=== PATIENT | female | born 1935 | race Caucasian/White ===

== ENCOUNTER → 2018-02-02 11:54 | Outpatient (CLI) | payer MEDICARE, OTHER, SELFPAY ==
--- NOTE | 2018-02-02 | DI.ECHO.S_ITS ---
[facility] +---------+ : : [address] : : : : [id number] : : : : Phone: [phone]---------+ Echocardiogram Report + + :Name: BERNARDO TEJADA Study Date: 02/02/2018 Height: 61 in : :[facility] Weight: 126 lb : : Gender: Female BSA: 1.6 m2 : :: 1935 Age: 83 yrs BP: 142/70 mmHg: :Reason For Study: Dyspnea on exertion : :Ordering Physician: Thierry : :Trav Performed By: Carlie Black : :Referring: Dr. Knutson Roof : + + Interpretation Summary Mild asymmetric left ventricular hypertrophy with ejection fraction 65-70%. Mildly dilated left atrium. Mild aortic valve sclerosis. No valvular regurgitation. Procedure: A two-dimensional transthoracic echocardiogram with color flow and Doppler was performed. The study quality was technically adequate. There is no prior echocardiogram noted for this patient. The patient was in normal sinus rhythm during the exam. The heart rate ranged between 49-63 bpm during the study. Left Ventricle: There is mild asymmetric left ventricular hypertrophy. The left ventricular cavity is small. There is no ventricular septal defect visualized. The ejection fraction is estimated to be 65-70%. There are no focal wall motion abnormalities. Diastolic parameters suggest a pseudonormalization pattern, consistent with probable elevated filling pressures. Right Ventricle: The right ventricle is normal in size and function. Atria: The left atrium is mildly dilated. Right atrial size is normal. There is no Doppler evidence for an interatrial shunt. Mitral Valve: There is borderline prolapse of the anterior mitral valve leaflet. There is trace mitral regurgitation. Aortic Valve: There is mild aortic valve sclerosis. The aortic valve is trileaflet. The aortic valve opens well. No aortic regurgitation is present. Tricuspid Valve: The tricuspid valve leaflets are thin and pliable. There is trace tricuspid regurgitation. The right ventricular systolic pressure is estimated to be at least 25 mmHg based on an estimated right atrial pressure of 3 mm Hg. Pulmonic Valve: The pulmonic valve is normal in structure and function. There is a trace or physiologic amount of pulmonic regurgitation. Great Vessels: The aortic root is normal size. The ascending aorta is normal in size. The aortic arch is normal in size. The IVC is of normal diameter and collapses greater than 50% with a sniff. This suggests a low right atrial pressure of 3 mm Hg. Pericardium/ Pleura There is no pericardial effusion. MMode/2D Measurements & Calculations LVIDd: 4.3 cm LVOT diam: 1.8 cm LVIDs: 2.6 cm Ao root diam: 3.1 cm FS: 39.8 % Aortic Jxn: 2.6 cm EPSS: 0.16 cm asc Aorta Diam: 3.3 cm IVSd: 1.2 cm Ao Arch Diam (Prox Trans): 2.8 cm LVPWd: 0.68 cm LV camargo. diameter/BSA (cm/m^2): 2.8 LV sys. diameter/BSA (cm/m^2): 1.7 LA A2 area: 18.7 cm2 RA long axis: 4.6 cm LA A4 area: 23.5 cm2 RA area: 10.1 cm2 LA length (vol): 5.8 cm RA vol: 18.8 ml LA vol: 64.8 ml RA : 12.1 ml/m2 LA vol index: 41.7 ml/m2 IVC diam: 1.2 cm RVD1 (basal): 2.7 cm RVD2 (mid): 2.2 cm TAPSE: 2.0 cm Doppler Measurements & Calculations Ao V2 max: 130.9 cm/sec LVOT Max Judd: 89.4 cm/sec Ao V2 mean: 85.8 cm/sec LV V1 max P.2 mmHg Ao max P.9 mmHg LV V1 VTI: 22.4 cm Ao mean P.4 mmHg SALVADOR(I,D): 1.9 cm2 Ao V2 VTI: 30.4 cm SALVADOR(V,D): 1.7 cm2 sev ratio: 0.74 SALVADOR indexed to BSA (cm^2/m^2): 1.2 MV E max judd: 67.1 cm/sec TR max judd: 231.6 cm/sec MV A max judd: 54.3 cm/sec TR max P.5 mmHg MV E/A: 1.2 PA V2 max: 82.1 cm/sec Med Peak E' Judd: 5.4 cm/sec PA V2 mean: 51.6 cm/sec E/E' med: 12.5 PA mean P.3 mmHg Lat Peak E' Judd: 5.9 cm/sec PA Accel Time: 0.07 sec E/E' lat: 11.4 E/e' average: 11.9 MV dec time: 0.20 sec MV P1/2t: 59.4 msec MV P1/2t max judd: 67.1 cm/sec SV(LVOT): 56.6 ml MVA(P1/2t): 3.7 cm2 Electronically signed by: Josefina Albrecht on Reading Physician:02/02/2018 03:54 PM
== END ==
PROVIDERS: PCP Internal Medicine; Visit Provider Internal Medicine Cardiovascular Disease
DX: I35.8 Other nonrheumatic aortic valve disorders (principal); R06.09 Other forms of dyspnea
CPT/HCPCS: 93306

== ENCOUNTER → 2019-07-03 15:19 | Outpatient (CLI) | payer MEDICARE, OTHER, SELFPAY | PROVIDERS: Referring Provider Hospitalist; Visit Provider Hospitalist | DX: I48.0 Paroxysmal atrial fibrillation (principal) | CPT/HCPCS: 93005 ==

== ENCOUNTER → 2019-07-05 14:24 | Outpatient (CLI) | payer MEDICARE, OTHER, SELFPAY ==
[2019-07-05 15:39] LABS: BUN Creatinine Ratio 23.5 (6-22); Blood Urea Nitrogen 23 mg/dL (7-17); Calcium 9.7 mg/dL (8.4-10.2); Carbon Dioxide 25 mmol/L (22-32); Chloride 100 mmol/L (98-107); Estimated Glomerular Filt Rate 53.9 mL/min (>60); Glucose 118 mg/dL (80-110); HEMOLYSIS < 15 (0-50); Potassium 4.5 mmol/L (3.4-5.1); Sodium 135 mmol/L (137-145)
== END ==
PROVIDERS: PCP Family Medicine; Referring Provider Hospitalist; Visit Provider Hospitalist
DX: I10 Essential (primary) hypertension (principal)
CPT/HCPCS: 36415; 80048